=== PATIENT | female | born 1950 | race Caucasian/White ===

== ENCOUNTER 2018-05-04 10:52 | Outpatient (CLI) | payer MEDICARE, OTHER ==
[2018-05-04] MEDS ORDERED: REGADENOSON 0.4 MG/5 ML SYRINGE IVP ONE ×2 (13:27→14:16)
--- NOTE | 2018-05-04 15:05 | Nuclear Medicine Report ---
Procedure Date: 05/04/2018 Accession Number: [id number] / [id number] Procedure: NM - Myocardial Perfusion STR/RST CPT Code: FULL RESULT: EXAM: SINGLE-ISOTOPE PHARMACOLOGICAL STRESS TEST WITH REGADENOSON. SINGLE-ISOTOPE AND ONE-DAY REST/STRESS MYOCARDIAL PERFUSION SCANS WITH TOMOGRAPHIC IMAGING, QUANTITATIVE ANALYSIS, WALL MOTION ANALYSIS AND CALCULATION OF EJECTION FRACTION. EXAM DATE: 05/04/2018 02:46 PM. CLINICAL HISTORY: CHEST PAIN. COMPARISON: None available. TECHNIQUE: After the intravenous administration of 9.7 mCi of Tc-99m sestamibi, a rest myocardial perfusion scan was done with tomography. Motion correction was applied when appropriate. After an appropriate delay, pharmacological stress was performed with the infusion of 0.4 mg regadenoson per protocol. According to protocol, 41.2 mCi of Tc-99m sestamibi was injected for stress myocardial perfusion scan. Motion correction was applied when appropriate. Gated tomographic images were obtained for wall motion analysis and computation of left ventricular ejection fraction. FINDINGS: On visual analysis, there may be a very mild reversible defect in the distal inferolateral wall. No other convincing fixed or reversible perfusion defects. Computer analysis: Summed stress score 8 Summed rest score 2 Summed difference score 6 Wall motion analysis demonstrates no focal wall motion abnormality. The left ventricular end-diastolic volume is 21 cc. The left ventricular end-systolic volume is 20 cc. The left ventricular ejection fraction is calculated to be 97%. IMPRESSION: 1. On visual analysis, equivocal very mild reversible defect in the distal inferolateral wall. No other convincing significant fixed or reversible perfusion defects. 2. Left ventricular ejection fraction of 97%. This is presumably an overestimate. 3. Normal segmental and global wall motion. 4. Normal left ventricular cavity size, no change with stress. 5. Based on computer analysis, mildly abnormal study with moderate ischemia. There is a discrepancy compared to evaluation based on visual analysis. RADIA
--- NOTE | 2018-05-04 17:40 | CARDIAC PROCEDURE NOTE ---
DATE OF SERVICE: 05/04/2018 Physician: LATASHA Lancaster PRIMARY CARE PROVIDER: OCTAVIO Amaya IMPREGNATOR AND DRIER: Rito Sinha MD PROCEDURE: Myocardial perfusion treadmill transitioned to pharmaceutical scan. PROCEDURE SYMPTOMS: Chest pain and abnormal ECG. CARDIAC RISK FACTORS: Age. PREVIOUS CARDIAC PROCEDURES: None. Obtained permission from Dr. Sinha to convert to pharmaceutical test if needed. CLINICAL HISTORY: A 67-year-old female without known coronary artery disease. INITIAL RESTING VITAL SIGNS: BP 152/72, heart rate 67, height 61 inches, weight 169 pounds, BMI 31.93. PROCEDURE AND FINDINGS: Patient identity and date verified. Consent signed. The patient began treadmill exercise using a modified Devang protocol, but it was aborted in the first minute due to her inability to lengthen her stride to keep pace. Pharmacologic stress testing was then performed with Lexiscan at a dose of 0.4 mg over 10 seconds while the patient continued at a slower rate. Her heart rate increased to 126 beats per minute. Blood pressure response lowered to a systolic BP of 130s during the stress procedure. The patient developed mild infusion-related symptoms, which included dizziness, shortness of air, and headache. These resolved spontaneously. The resting ECG demonstrated normal sinus rhythm with no ST or T-wave changes. Maximum ST segment depression with stress was less than 0.5 mm and upsloping. There was rare PAC ectopy. FINAL IMPRESSION 1. Negative electrocardiogram for ischemia in the setting of vasodilator stress. 2. Nondiagnostic stress test for angina. 3. One premature atrial contraction noted. 4. Necessary to convert to pharmaceutical scan due to patient's inability to walk on treadmill. DISCUSSION AND RECOMMENDATIONS: Await myocardial perfusion report. TD: 05/04/2018 14:16 KADY
[2018-05-04 18:16] VITALS: BP 172/77
== END 2018-05-04 10:53 | disposition home or self-care (01) ==
LOC: DI 10:52
PROVIDERS: ATTEND Internal Medicine Cardiovascular Disease
DX: I25.9 Chronic ischemic heart disease, unspecified (principal)
CPT/HCPCS: 78452; 93017; A9500; J2785